=== PATIENT | male | born 1950 | race Caucasian/White ===

== ENCOUNTER 2017-07-10 19:59 | Emergency (ER) | payer SELFPAY ==
[2017-07-10 21:55] LABS: BASOPHIL % 0.3 % (0-2); PLATELET COUNT 225 x10^3mcL (130-400); RED CELL DISTRIBUTION WIDTH 13.7 % (11.5-14.5)
[2017-07-10 22:03] LABS: BILIRUBIN TOTAL 0.7 mg/dL (0.20-1.00); CALCIUM 8.3 mg/dL (8.5-10.1); CARBON DIOXIDE 25.4 mmol/L (21-32); CHOLESTEROL/HDL RATIO 3.7; TOTAL PROTEIN, SERUM 7.2 g/dL (6.4-8.2)
[2017-07-10 22:06] LABS: POTASSIUM SERUM 5.9 mmol/L (3.5-5.1)
[2017-07-10 22:07] LABS: CREATININE SERUM 6.2 mg/dL (0.7-1.3)
[2017-07-10 22:09] LABS: FREE T4 1.22 ng/dL (0.76-1.46); FREE THYROXINE INDEX 3.1 ug/dL (1.4-4.5); T4(THYROXINE) 9.2 ug/dL (4.7-13.3)
[2017-07-10 22:20] LABS: T3 TOTAL 0.91 ng/mL
[2017-07-11 01:30] VITALS: BP 146/89
== END 2017-07-11 01:30 | disposition home or self-care (01) ==
LOC: ED 19:59
PROVIDERS: Specialist
DX: N17.9 Acute kidney failure, unspecified (principal); N32.0 Bladder-neck obstruction; N21.0 Calculus in bladder; N40.0 Benign prostatic hyperplasia without lower urinary tract symptoms; E87.5 Hyperkalemia
CPT/HCPCS: 36600; 82962; 83880; 84439; J1815; J1885; J2405; J3010; J3490; J7030

== ENCOUNTER 2017-08-23 22:12 | Emergency (ER) | payer MEDICAID ==
[~2017-08-23] VITALS: Ht 172.7 cm; Wt 123.8 kg
[2017-08-23 22:30] VITALS: Ht 172.7 cm; Wt 123.8 kg
[2017-08-23 23:02] VITALS: BP 156/94
== END 2017-08-23 23:02 | disposition home or self-care (01) ==
LOC: ED 22:12
DX: N39.0 Urinary tract infection, site not specified (principal)